=== PATIENT | male | born 1940 | race American Indian/Alaskan Native ===

== ENCOUNTER 2018-11-10 07:55 | Day surgery (SDC) | payer MEDICARE ==
[~2018-11-10 07:55] MED LIST: ANCEF/STERILE WATER 2 GM/20 ML IV NR
[2018-11-10] MEDS ORDERED: NACL BACTERIOSTATIC INFILTRATI ONE (08:35)
[2018-11-10] MEDS ORDERED: MARCAINE-EPI 0.5%-1:200,000 INFILTRATI ONE ×2 (09:07→10:44)
[2018-11-10] MEDS ORDERED: XYLOCAINE MPF 2% ONE (09:16)
[2018-11-10] MEDS ORDERED: SUBLIMAZE ONE (09:16)
[2018-11-10] MEDS ORDERED: DIPRIVAN 10 MG/ML IV ONE (09:17)
--- NOTE | 2018-11-10 09:19 | Anesthesia Day of Surgery ---
Anesthesia Day of Surgery - Day of Surgery Patient Examined: Yes Patient H&P Reviewed: Yes Patient is NPO: Yes
--- NOTE | 2018-11-10 09:19 | Anesthesia Consultation ---
Anesthesia Consult and Med Hx Date of service: 11/10/18 - Airway Anesthetic Teeth Evaluation: Edentulous ROM Head & Neck: Adequate Mental/Hyoid Distance: Adequate Mallampati Class: Class II Intubation Access Assessment: Probably Good - Pulmonary Exam CTA: Yes - Cardiac Exam Cardiac Exam: RRR - Pre-Operative Health Status ASA Pre-Surgery Classification: ASA2 Proposed Anesthetic Plan: General - Pulmonary Hx Smoking: Yes (STOPPED 1973) Hx Respiratory Symptoms: No Hx Sleep Apnea: No (SARAH PRE SCREEN HIGH RISK) - Cardiovascular System Hx Hypertension: Yes (took antihypertensives today) Hx Heart Attack/AMI: No Hx Percutaneous Transluminal Coronary Angioplasty (PTCA): No - Central Nervous System CVA: No - Gastrointestinal Hx Gastroesophageal Reflux Disease: No - Endocrine Hx Renal Disease: No Hx Liver Disease: No Hx Non-Insulin Dependent Diabetes: Yes Hx Thyroid Disease: No - Other Systems Hx Obesity: No - Additional Comments Anesthesia Medical History Comments: No prior GA. No FHx anesthetic complications.
[2018-11-10] MEDS ORDERED: DILAUDID IV PRN (09:30)
[2018-11-10] MEDS ORDERED: TYLENOL PO NR (09:30)
[2018-11-10] MEDS ORDERED: LACTATED RINGERS 1,000 ML IV SCH (10:00)
[2018-11-10] MEDS ORDERED: ceFAZolin 2 GM in NACL 0.9% 100 ML IV ONE (10:00)
[2018-11-10] MEDS ORDERED: ZEMURON IV ONE (10:27)
[2018-11-10] MEDS ORDERED: NACL 0.9% IR ONE (10:44)
[2018-11-10] MEDS ORDERED: BLOXIVERZ ONE (11:07)
[2018-11-10] MEDS ORDERED: ROBINUL ONE (11:07)
[2018-11-10] MEDS ORDERED: TORADOL ONE (11:07)
[2018-11-10] MEDS ORDERED: ZOFRAN ONE (11:07)
--- NOTE | 2018-11-10 11:32 | Discharge Summary ---
Short Stay Discharge Plan Activity: other (observe x 4 hrs then may d/c if stable and able to void. If any issues or concerns, please call and we'll observe overnight. ice pack R groin x 6 hrs. scrotal support x 3 days. keep dressings dry x 5 days. no lifting over 5 lbs x 3 wks) Diet: clear liquids (advance to solid high fiber diet as jadiel) Wound: keep clean and dry Additional Instructions: aleve I po q 6 - 8 hrs prn for breakthrough pain. surfak I po q am x 3 Follow up with: RDAHA ATKINSON MD [Staff Physician] - 7 Days
--- NOTE | 2018-11-10 12:58 | Operative Report ---
PREOPERATIVE DIAGNOSIS: Right inguinal hernia. POSTOPERATIVE DIAGNOSIS: Large indirect right inguinal hernia as well as lipoma of cord. PROCEDURE: Right inguinal hernia repair with mesh and removal of lipoma of cord. SURGEON: Zachery Anderson MD ANESTHESIA: General. ESTIMATED BLOOD LOSS: Minimal. No drains or complications. DESCRIPTION OF PROCEDURE: The patient was taken to the operating room, prepped and draped in usual sterile fashion. Incision was made using his landmarks anterior superior iliac spine and pubic tubercle. Incision was carried down to external oblique fascia. External oblique fascia was transected down to the external inguinal ring. The cord was then encircled with a Александр drain at the level of pubic tubercle. Inspection of the cord revealed a large indirect hernia sac. The sac was dissected free from surrounding cord structures and high ligated with pursestring Surgilon suture. Portions of the sac were sent as specimen. The lipoma cord was also identified. Lipoma cord was dissected free. A portion of it was returned through the internal inguinal ring. A portion of the lipoma was sent as specimen. Area was irrigated copiously and dried. Checked for hemostasis and noted to be dry. The floor was then identified and also noted to be weak. A keyhole Marlex mesh was then used to reconstruct the inguinal canal floor. The mesh was tacked inferiorly to the area of the pubic tubercle. Medially, the mesh was secured to the transversalis fascia and laterally to the iliopubic tract with Nurolon sutures. Once again, the area was irrigated copiously and dried. Checked for hemostasis and noted to be dry. Cord structures were inspected and noted to be intact. The cord was then on laid over the mesh. The external oblique fascia was closed over the cord with running 3-0 Vicryl suture. Subcutaneous tissues irrigated and skin closed with pedrito. A 0.5% Marcaine was infiltrated over the fascia, subcutaneous, and skin for postoperative pain relief. Ilioinguinal nerve block was also performed. The patient tolerated the procedure well and left the OR in stable condition. JOB# [id number] YESICA/FARHANA
[2018-11-10] MEDS ORDERED: ANCEF/STERILE WATER 2 GM/20 ML IV NR (14:00)
--- NOTE | 2018-11-10 16:55 | Post Anesthesia Evaluation ---
- Post Anesthesia Evaluation Patient Participated: Yes Airway Patent: Yes Stable Respiratory Function: Yes Nausea/Vomiting: No Temp > 96.8F: Yes Pain Manageable: Yes Adequeate Hydration: Yes Anesthesia Complications: No Block Receding Appropriately: Not Applicable Patient on Ventilator: No
[2018-11-10 17:06] VITALS: BP 127/62
== END 2018-11-10 16:20 | disposition home or self-care (01) ==
LOC: OR 07:55
PROVIDERS: ATTEND Surgery
DX: K40.90 Unilateral inguinal hernia, without obstruction or gangrene, not specified as recurrent (principal); D17.6 Benign lipomatous neoplasm of spermatic cord; E78.00 Pure hypercholesterolemia, unspecified; I10 Essential (primary) hypertension; E11.9 Type 2 diabetes mellitus without complications; Z79.84 Long term (current) use of oral hypoglycemic drugs; Z79.82 Long term (current) use of aspirin; Z87.891 Personal history of nicotine dependence; Z79.899 Other long term (current) drug therapy
CPT/HCPCS: 49505; 82803; 82962; 88302; 88304; C1781; J0690; J1885; J2405; J2704; J2710; J3010; J7120